=== PATIENT | male | born 1980 | race Caucasian/White ===

== ENCOUNTER 2019-09-27 20:35 | Emergency (ER) | payer SELFPAY ==
[2019-09-27] MEDS ORDERED: NORMAL SALINE 1000 ML 1,000 ML IV ONE (21:00)
--- NOTE | 2019-09-27 21:14 | ER Document Report ---
ED Medical Screen (RME) - General Chief Complaint: Abdominal Pain Stated Complaint: ABDOMINAL PAIN Time Seen by Provider: 09/27/19 20:55 - HPI Notes: 09/27/19 39-year-old male to the emergency department with complaints of left lower quadrant abdominal pain that began yesterday. He states that he has not had a bowel movement in 4 to 5 days. He states that he is been using methamphetamines. He is been injecting it smoking it and putting it up his rectum. He does admit to nausea and vomiting. He denies any other complaints. I Performed a brief medical screening exam on patient and determined he will need further care from Main side provider. I placed initial orders to expedite in his care. - Related Data Allergies/Adverse Reactions: No Known Allergies Allergy (Unverified 09/27/19 20:43) Past Medical History - Social History Chew tobacco use (# tins/day): No Frequency of alcohol use: Rare Drug Abuse: Methamphetamine Physical Exam - Vital signs Vitals: Temp Pulse Resp BP Pulse Ox 98.7 F 88 18 127/84 H 100 09/27/19 20:42 09/27/19 20:42 09/27/19 20:42 09/27/19 20:42 09/27/19 20:42 Course - Vital Signs Vital signs: Temp Pulse Resp BP Pulse Ox 98.7 F 88 18 127/84 H 100 09/27/19 20:42 09/27/19 20:42 09/27/19 20:42 09/27/19 20:42 09/27/19 20:42 - Laboratory Result Diagrams: 09/27/19 21:00 09/27/19 21:00 Laboratory results interpreted by me: 09/27/19 09/27/19 09/27/19 21:00 21:00 21:00 WBC 14.2 H Lymph % (Auto) 7.1 L [place] % (Auto) 13.8 H Absolute Neuts (auto) 11.1 H Absolute Monos (auto) 2.0 H Seg Neutrophils % 78.1 H Creatinine 1.40 H Est GFR (MDRD) Non-Af 56 L AST 72 H Urine Blood MODERATE H Urine Urobilinogen 4.0 H Ur Leukocyte Esterase LARGE H
[2019-09-27 21:20] LABS: ABSOLUTE BASOPHILS # (AUTO) 0.1 10^3/uL (0.0-0.2); ABSOLUTE EOSINOPHILS # (AUTO) 0.1 10^3/uL (0.0-0.6); ABSOLUTE NEUT (AUTO) 11.1 10^3/uL (1.7-8.2); BASOPHILS % (AUTO) 0.5 % (0-2); EOSINOPHILS % (AUTO) 0.5 % (0-6); HEMATOCRIT 43.5 % (37.9-51.0); HEMOGLOBIN 14.8 g/dL (13.5-17.0); LYMPHOCYTES % (AUTO) 7.1 % (13-45); MEAN CORPUSCULAR VOLUME 88 fl (80-97); MONOCYTES % (AUTO) 13.8 % (3-13); PLATELET COUNT 228 10^3/uL (150-450); RED BLOOD COUNT 4.93 10^6/uL (4.35-5.55); RED CELL DISTRIBUTION WIDTH 13.9 % (11.5-14.0); SEGMENTED NEUTROPHILS % (AUTO) 78.1 % (42-78); TOTAL CELLS COUNTED % (AUTO) 100 %; WHITE BLOOD COUNT 14.2 10^3/uL (4.0-10.5)
[2019-09-27 21:32] LABS: APPEARANCE,URINE SLIGHTLY-CLOUDY; BILIRUBIN,URINE NEGATIVE (NEGATIVE); COLOR,URINE YELLOW; GLUCOSE, URINE NEGATIVE (NEGATIVE); KETONES,URINE NEGATIVE (NEGATIVE); LEUKOCYTE ESTERASE,URINE LARGE (NEGATIVE); NITRITE,URINE NEGATIVE (NEGATIVE); PROTEIN,URINE NEGATIVE (NEGATIVE)
[2019-09-27] MEDS ORDERED: DIPHENHYDRAMINE HCL 50 MG/ML VIAL IV ONE (21:37)
[2019-09-27] MEDS ORDERED: ONDANSETRON HCL INJ/PF 4 MG/2 ML SDV IV ONE (21:37)
[2019-09-27] MEDS ORDERED: KETOROLAC TROMETHAMINE INJ/PF 30 MG/1 ML SDV IV ONE (21:37)
[2019-09-27 21:39] LABS: ALBUMIN 4.3 g/dL (3.5-5.0); ALKALINE PHOSPHATASE 83 U/L (38-126); ANION GAP 10 (5-19); ASPARTATE AMINO TRANSFERASE 72 U/L (17-59); BILIRUBIN,DIRECT 0.3 mg/dL (0.0-0.4); BILIRUBIN,TOTAL 1.3 mg/dL (0.2-1.3); BLOOD UREA NITROGEN 13 mg/dL (7-20); CALCIUM 9.7 mg/dL (8.4-10.2); CARBON DIOXIDE 26 mmol/L (22-30); CHLORIDE 101 mmol/L (98-107); GLUCOSE 106 mg/dL (75-110); POTASSIUM 3.8 mmol/L (3.6-5.0)
--- NOTE | 2019-09-27 21:40 | ER Document Report ---
ED GI/ - General Chief Complaint: Abdominal Pain Stated Complaint: ABDOMINAL PAIN Time Seen by Provider: 09/27/19 20:55 Notes: Patient is a 39-year-old male that comes emergency department for chief complaint of sharp abdominal pain and nausea since last night. Pain does radiate some to the flank on the left. Pain is worse on the left side in the mid to lower aspect but also occasionally is on the right and upper aspect. He denies vomiting. He states he thinks he has been having fevers but is not sure. He denies abdominal surgeries, he does have a history of kidney stones but states this feels different. He admits to methamphetamine use including injection and placing it up his rectum. He denies rectal pain but he does report no bowel movement for the past few days. - Related Data Allergies/Adverse Reactions: No Known Allergies Allergy (Unverified 09/27/19 20:43) Past Medical History - General Information source: Patient - Social History Smoking Status: Current Every Day Smoker Chew tobacco use (# tins/day): No Frequency of alcohol use: Rare Drug Abuse: Methamphetamine Lives with: Spouse/Significant other Family History: Reviewed & Not Pertinent Patient has suicidal ideation: No Patient has homicidal ideation: No Surgical Hx: Negative - Immunizations Hx Diphtheria, Pertussis, Tetanus Vaccination: Yes Review of Systems - Review of Systems Constitutional: See HPI EENT: No symptoms reported Cardiovascular: No symptoms reported Respiratory: No symptoms reported Gastrointestinal: See HPI Genitourinary: No symptoms reported Male Genitourinary: No symptoms reported Musculoskeletal: No symptoms reported Skin: No symptoms reported Hematologic/Lymphatic: No symptoms reported Neurological/Psychological: No symptoms reported Physical Exam - Vital signs Vitals: Temp Pulse Resp BP Pulse Ox 98.7 F 88 18 127/84 H 100 09/27/19 20:42 09/27/19 20:42 09/27/19 20:42 09/27/19 20:42 09/27/19 20:42 - Notes Notes: GENERAL: Patient is alert, slightly restless, slightly ill-appearing but not toxic in appearance HEAD: Normocephalic, atraumatic. EYES: Pupils equal, round, and reactive to light. Extraocular movements intact. ENT: Oral mucosa moist, tongue midline. Oropharynx unremarkable. Airway patent. NECK: Full range of motion. Supple. Trachea midline. LUNGS: Clear to auscultation bilaterally, no wheezes, rales, or rhonchi. No respiratory distress. HEART: Regular rate and rhythm. No murmur ABDOMEN: Patient winces with palpation mainly over the left side of the abdomen generally, mild generalized tenderness otherwise, no overt guarding, rigidity, or rebound tenderness. GENITOURINARY: Deferred EXTREMITIES: Moves all 4 extremities spontaneously. No edema, normal radial and dorsalis pedis pulses bilaterally. No cyanosis. BACK: no cervical, thoracic, lumbar midline tenderness. No saddle anesthesia, normal distal neurovascular exam. Moves all extremities in full range of motion. NEUROLOGICAL: Alert and oriented x3. Normal speech. Cranial nerves II through XII grossly intact. PSYCH: Normal affect, normal mood. SKIN: Warm, dry, normal turgor. No rashes or lesions noted. Course - Re-evaluation Re-evalutation: Patient symptoms significantly improved with Zofran, Toradol, diphenhydramine. He was given IV fluids. He does have generalized abdominal pain but this is much worse on the left side. He is somewhat ill-appearing but he does not have a fever. CBC shows leukocytosis at 14,000 with elevation of neutrophils but no bandemia. Chemistry unremarkable. Urinalysis indicating infection with large amount of white blood cells and leukocyte esterase, clean sample with less than 1 squamous epithelials. Culture placed. Patient has been started on Rocephin. Patient also has had blood cultures obtained. CAT scan had already been initiated by triage (CT of the abdomen pelvis with IV contrast). CT showing left-sided 7 mm obstructing stone in the proximal ureter with hydronephrosis on the left side. No other concerning findings. Because of patient's UTI and obstructing stone I discussed with patient, discussed with Dr. 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 Patient requests transfer to [facility] Vital signs are still unremarkable with no fever, tachycardia, or hypotension. On reevaluation patient states he feels much better and he declines any additional management at this time. 09/28/19 00:05 Called and spoke with [facility] transfer center, pending callback 09/28/19 00:[address] Houser, internal medicine, patient accepted for transfer. 09/28/19 01:27 Patient now has a fever of 102 F. He is getting the second gram of Rocephin, treat the fever, I did call [facility] back and update them on the change in status. 09/28/19 03:27 Still pending bed assignment, patient is resting comfortably, lead pressure is 111/61, heart rate is 65, pulse ox 97%, normal respirations. 09/28/19 04:08 I have spoken with [facility] again, they still not have bed and will not be abl e to tell me when this opens up. I discussed with patient and he states he is open to going to [facility]. I discussed with Dr. Gramajo, urology on-call, he states patient definitely needs a stent and he accepts patient for transfer to the emergency department from this emergency department so he can taken to the operating room. Patient is very agreeable with this plan. Patient has been kept n.p.o. here. 09/28/19 05:15 EMS at bedside, no change in vital signs, patient is being transferred to [facility] emergency department. Re-evaluated at bedside. Patient with no current complaints. No significant change, patient well appearing. Stable for transport. - Vital Signs Vital signs: Temp Pulse Resp BP Pulse Ox 100.0 F 87 18 111/61 96 09/28/19 02:40 09/28/19 00:55 09/28/19 03:01 09/28/19 03:01 09/28/19 03:01 - Laboratory Result Diagrams: 09/27/19 21:00 09/27/19 21:00 Laboratory results interpreted by me: 09/27/19 09/27/19 09/27/19 21:00 21:00 21:00 WBC 14.2 H Lymph % (Auto) 7.1 L [place] % (Auto) 13.8 H Absolute Neuts (auto) 11.1 H Absolute Monos (auto) 2.0 H Seg Neutrophils % 78.1 H Creatinine 1.40 H Est GFR (MDRD) Non-Af 56 L AST 72 H Urine Blood MODERATE H Urine Urobilinogen 4.0 H Ur Leukocyte Esterase LARGE H Discharge - Discharge Clinical Impression: Ureterolithiasis Abdominal pain Qualifiers: Abdominal location: generalized Qualified Code(s): R10.84 - Generalized abdominal pain Urinary tract infection Qualifiers: Urinary tract infection type: site unspecified Hematuria presence: without hematuria Qualified Code(s): N39.0 - Urinary tract infection, site not specified Condition: Stable Disposition: [facility]
[2019-09-27] MEDS ORDERED: CEFTRIAXONE 1 GM/D5W RTU 1 GM/50 ML RTUPB IV ONE (23:51)
--- NOTE | 2019-09-27 23:51 | RADIOLOGY REPORT (SQ) ---
EXAM DESCRIPTION: CT ABDOMEN PELVIS WITH IV CONTRAST COMPLETED DATE/TME: 09/27/2019 20:59 CLINICAL HISTORY: 39 years Male LLQ abd pain. COMPARISON: None. TECHNIQUE: Contiguous axial images obtained through the abdomen and pelvis following IV contrast. Reformatted images obtained. This exam was performed according to our department optimization program which includes automated exposure control, adjustment of the mA and/or kv according to patient size and/or use of iterative reconstruction technique. FINDINGS: The liver appears unremarkable. The spleen and pancreas appear unremarkable. No adrenal masses. Unremarkable right kidney. Delayed nephrogram on the left with perinephric stranding and edema and left hydronephrosis. There is an obstructing 7 mm proximal ureteral stone. There is a small amount of fluid in the pelvis and in the upper abdomen. The gallbladder is visualized. No aneurysmal dilatation of the aorta. No bowel obstruction. The appendix is unremarkable. IMPRESSION: Left hydronephrosis with delayed nephrogram and perinephric edema and an obstructing 7 mm proximal stone Small amount of free fluid in the abdomen and pelvis Unremarkable appendix
[2019-09-28] MEDS ORDERED: RINGERS SOLUTION,LACTATED 1,000 ML IV PRN ×2 (00:02→03:45)
[2019-09-28] MEDS ORDERED: ACETAMINOPHEN 325 MG TABLET PO ONE (01:22)
[2019-09-28] MEDS ORDERED: CEFTRIAXONE 1 GM/D5W RTU 1 GM/50 ML RTUPB IV ONE (01:23)
[2019-09-28] MEDS ORDERED: MORPHINE SULFATE 10 MG/ML INJ IV ONE (01:52)
[2019-09-28 03:21] VITALS: BP 111/61
[2019-09-28] MEDS ORDERED: NORMAL SALINE 1000 ML 1,000 ML IV PRN (03:33)
[2019-09-28] MEDS ORDERED: NORMAL SALINE 1000 ML 1,000 ML IV ONE (04:12)
== END 2019-09-28 04:50 | disposition short-term general hospital (02) ==
LOC: ER 20:35
DX: N20.1 Calculus of ureter (principal); R10.84 Generalized abdominal pain; N39.0 Urinary tract infection, site not specified; R11.0 Nausea; F17.200 Nicotine dependence, unspecified, uncomplicated; Z87.442 Personal history of urinary calculi
CPT/HCPCS: 36415; 87040; 87086; 83690; 83735; 85025; 80053; 81001; 74177; J1200; J1885; J2270; J2405; J7030; J7120; J0696

== ENCOUNTER 2019-10-27 19:11 | Emergency (ER) | payer SELFPAY ==
[2019-10-27 19:16] VITALS: BP 136/83
--- NOTE | 2019-10-27 19:46 | ER Document Report ---
HPI - HPI Time Seen by Provider: 10/27/19 19:32 Notes: Patient is a 39-year-old male with no significant past medical history, but was seen last month for a ureteral stone and had to be transferred as it was infected and had the stone removed on October 20 with a stent placed. Patient states that he was on Keflex upon discharge from the hospital, but they told him that there is still some bacteria in his urine with his urinalysis last week so I placed him on Bactrim which he started yesterday. Patient states that he missed his urology appointment and does not have a ride to go down to [place] so he came here to see if we could pull the ureteral stent out as he was told he could do it on his own per the urologist. Patient otherwise states that he does have some burning when he urinates which is not uncommon for him at this time and has noticed some blood which has been there since the stent was placed. He is otherwise eating and drinking without difficulty. He is having normal bowel movements. No other concerns or complaints. Denies any headache, fever, neck pain, URI, sore throat, chest pain, palpitations, syncope, cough, shortness of breath, wheeze, dyspnea, abdominal pain, nausea/vomiting/diarrhea, urinary retention, dysuria, hematuria, back pain, or rash. - ROS Systems Reviewed and Negative: Yes All other systems reviewed and negative Past Medical History - Social History Smoking Status: Unknown if Ever Smoked Family History: Reviewed & Not Pertinent - Immunizations Hx Diphtheria, Pertussis, Tetanus Vaccination: Yes Vertical Provider Document - CONSTITUTIONAL Agree With Documented VS: Yes Notes: PHYSICAL EXAMINATION: GENERAL: Well-appearing, well-nourished and in no acute distress. HEAD: Atraumatic, normocephalic. EYES: Pupils equal round and reactive to light, extraocular movements intact, sclera anicteric, conjunctiva are normal. ENT: Nares patent and without discharge. oropharynx clear without exudates. No tonsilar hypertrophy or erythema. Moist mucous membranes. NECK: Normal range of motion, supple without lymphadenopathy LUNGS: Breath sounds clear to auscultation bilaterally and equal. No wheezes rales or rhonchi. HEART: Regular rate and rhythm without murmurs, rubs, gallops. ABDOMEN: Soft, nontender, nondistended abdomen. No guarding, no rebound. Normal bowel sounds present. No CVA tenderness bilaterally. Musculoskeletal: FROM to passive/active. Strength 5+/5. Extremities: No cyanosis, clubbing, or edema b/l. Peripheral pulses 2+. Capillary refill less than 3 seconds. NEUROLOGICAL: Normal speech, normal gait. PSYCH: Normal mood, normal affect. SKIN: Warm, Dry, normal turgor, no rashes or lesions noted. Course - Re-evaluation Re-evalutation: 10/27/19 Patient is an afebrile, well-hydrated, 39-year-old male who presents with dysuria and probable urinary infection. Vitals are except without significant tachycardia, tachypnea, hypoxia. PE is otherwise unremarkable. Patient's abdomen is soft nontender throughout. He is nontoxic appearing and is tolerating p.o. without difficulty. See urinalysis. Urine cultures pending. Patient did start taking Bactrim yesterday. No further work-up warranted at this time. Patient states that his primary reason for coming was to see if he can get the ureteral stent pulled out which I discussed with Dr. Moeller and we will not do that in the emergency setting. I will provide him with local information for urology due to transportation issues to go to [place]. Low suspicion/risk for acute appendicitis, bowel obstruction, acute cholecystitis, perforated diverticulitis, incarcerated hernia, pancreatitis, perforated ulcer, peritonitis, sepsis, testicular torsion, or other systemic emergent condition at this time. Patient is aware that his condition can change from initial presentation and he needs to monitor symptoms closely and seek medical attention if any acute changes. Conservative measures otherwise for symptoms. Recheck with PCM in 2-3 days. Schedule consult with urology. Return to the ED with any worsening/concerning symptoms otherwise as reviewed in discharge. Patient is in agreement. - Vital Signs Vital signs: Temp Pulse Resp BP Pulse Ox 98.5 F 89 16 136/83 H 99 10/27/19 19:15 10/27/19 19:15 10/27/19 19:15 10/27/19 19:15 10/27/19 19:15 Discharge - Discharge Clinical Impression: Dysuria Condition: Stable Disposition: HOME, SELF-CARE Additional Instructions: Push fluids (i.e. water, cranberry juice) Proper hygenic technique Keep the skin clean Tylenol/ibuprofen as needed Take medications as directed F/u with your PCM in 3-5 days for a recheck Schedule consult with urology Return to the ED with any worsening symptoms and/or development of fever, headache, chest pain, palpitations, syncope, shortness of breath, trouble breathing, abdominal pain, n/v/d, blood in stool/urine, loss of control of bowel/bladder, urinary retention, or other worsening symptoms that are concern ing to you. Forms: Elevated Blood Pressure Referrals: [facility] [Provider Group] - Follow up in 3-5 days
[2019-10-27 20:18] LABS: APPEARANCE,URINE CLOUDY; BILIRUBIN,URINE NEGATIVE (NEGATIVE); COLOR,URINE YELLOW; GLUCOSE, URINE NEGATIVE (NEGATIVE); KETONES,URINE NEGATIVE (NEGATIVE); LEUKOCYTE ESTERASE,URINE MODERATE (NEGATIVE); NITRITE,URINE NEGATIVE (NEGATIVE); PROTEIN,URINE 100 mg/dL (NEGATIVE)
== END 2019-10-27 20:38 | disposition home or self-care (01) ==
LOC: ER 19:11
DX: R30.0 Dysuria (principal); Z87.442 Personal history of urinary calculi; Z96.0 Presence of urogenital implants
CPT/HCPCS: 81001; 87086; 87088; 99283

== ENCOUNTER 2020-04-18 03:10 | Emergency (ER) | payer MEDICAID ==
[2020-04-18 04:10] LABS: HEMATOCRIT 46.7 % (37.9-51.0); HEMOGLOBIN 16.2 g/dL (13.5-17.0); MEAN CORPUSCULAR HEMOGLOBIN 30.7 pg (27.0-33.4); MEAN CORPUSCULAR HGB CONC 34.6 g/dL (32.0-36.0); MEAN CORPUSCULAR VOLUME 89 fl (80-97); PLATELET COUNT 199 10^3/uL (150-450); RED BLOOD COUNT 5.27 10^6/uL (4.35-5.55)
[2020-04-18 04:18] LABS: ALBUMIN 4.4 g/dL (3.5-5.0); ALKALINE PHOSPHATASE 72 U/L (38-126); ANION GAP 8 (5-19); ASPARTATE AMINO TRANSFERASE 52 U/L (17-59); BILIRUBIN,TOTAL 0.6 mg/dL (0.2-1.3); BLOOD UREA NITROGEN 15 mg/dL (7-20); CALCIUM 9.7 mg/dL (8.4-10.2); CARBON DIOXIDE 28 mmol/L (22-30); CHLORIDE 98 mmol/L (98-107); GLUCOSE 99 mg/dL (75-110); POTASSIUM 4.2 mmol/L (3.6-5.0); TOTAL PROTEIN 6.8 g/dL (6.3-8.2)
[2020-04-18 04:19] LABS: APPEARANCE,URINE CLEAR; BILIRUBIN,URINE NEGATIVE (NEGATIVE); COLOR,URINE YELLOW; GLUCOSE, URINE NEGATIVE (NEGATIVE); KETONES,URINE NEGATIVE (NEGATIVE); LEUKOCYTE ESTERASE,URINE NEGATIVE (NEGATIVE); NITRITE,URINE NEGATIVE (NEGATIVE); PROTEIN,URINE NEGATIVE (NEGATIVE); URINE SPECIFIC GRAVITY 1.024
[2020-04-18 04:40] LABS: ABSOLUTE LYMPHOCYTES# (MANUAL) 0.4 10^3/uL (0.5-4.7); ABSOLUTE MONOCYTES # (MANUAL) 0.3 10^3/uL (0.1-1.4); BAND NEUTROPHILS % (MANUAL) 2 % (3-5); BASOPHILS % (MANUAL) 0 % (0-2); EOSINOPHILS % (MANUAL) 0 % (0-6); LYMPHOCYTES % (MANUAL) 4 % (13-45); MONOCYTES % (MANUAL) 3 % (3-13); SEGMENTED NEUTROPHILS % (MAN) 91 % (42-78); TOTAL CELLS COUNTED 100
[2020-04-18 04:41] LABS: ANISOCYTOSIS SLIGHT; PLATELET COMMENT ADEQUATE
--- NOTE | 2020-04-18 05:16 | RADIOLOGY REPORT (SQ) ---
EXAM DESCRIPTION: CT ABDOMEN PELVIS WITHOUT IV CONTRAST COMPLETED DATE/TME: 04/18/2020 03:50 CLINICAL HISTORY: 39 years, Male, bilateral flank pain fever COMPARISON: 09/27/2019 TECHNIQUE: Axial CT images of the abdomen and pelvis without contrast. Sagittal and coronal reformats were performed. DLP 271 Images stored on PACS. All CT scanners at this facility use dose modulation, iterative reconstruction, and/or weight based dosing when appropriate to reduce radiation dose to as low as reasonably achievable (ALARA). [facility]: Dose Right [facility]: CareDose [facility]: Dose Right [facility]: Teradose 4D [facility]: Smart Technologies LIMITATIONS: None. FINDINGS: Lung bases are clear. The liver, gallbladder, spleen, pancreas, and adrenal glands are unremarkable. There is no evidence of hydronephrosis or urolithiasis bilaterally. There is a 3 mm parenchymal calcification along the lower pole the left kidney. There is no intraperitoneal free air or fluid. No pathologically enlarged lymph nodes are detected. The abdominal aorta is normal in caliber. The stomach and small bowel are unremarkable. The appendix is not uniquely identified, however there are no definite pericecal inflammatory changes. The colon contains a moderate amount of stool. The urinary bladder and prostate gland appear unremarkable. There are no lytic or blastic bone lesions. IMPRESSION: No acute findings. No evidence of urolithiasis or hydronephrosis bilaterally. The appendix is not uniquely identified, however there are no definite pericecal inflammatory changes. TECHNICAL DOCUMENTATION: Quality ID # [id number]: Final reports with documentation of one or more dose reduction techniques (e.g., Automated exposure control, adjustment of the mA and/or kV according to patient size, use of iterative reconstruction technique) copyright 2011 [employer]- All Rights Reserved
[2020-04-18] MEDS ORDERED: CEFTRIAXONE 1 GM/D5W RTU 1 GM/50 ML RTUPB IV ONE (05:57)
[2020-04-18] MEDS ORDERED: NORMAL SALINE 1000 ML 1,000 ML IV ONE (05:58)
[2020-04-18] MEDS ORDERED: KETOROLAC TROMETHAMINE INJ/PF 30 MG/1 ML SDV IV ONE (05:58)
--- NOTE | 2020-04-18 06:34 | ER Document Report ---
ED General - General Chief Complaint: Flank Pain Stated Complaint: FEVER TRAVEL OUTSIDE OF THE [place] IN LAST 30 DAYS: No - HPI Notes: 39-year-old male history of IV methamphetamine use, smoking presents with 2 to 3 days gradual onset gradually worsening dysuria, frequency, urgency, and suprapubic discomfort associated with bilateral flank pain, subjective fever, and nausea. Patient says that he had similar symptoms when he had a previous UTI but that that was related to a kidney stone at that time which required surgical intervention. Patient denies any recent infections in the past few months or antibiotics, vomiting, bowel symptoms, midline back pain - Related Data Allergies/Adverse Reactions: No Known Allergies Allergy (Unverified 09/27/19 20:43) Past Medical History - General Information source: Patient - Social History Smoking Status: Current Every Day Smoker Drug Abuse: Methamphetamine Family History: Reviewed & Not Pertinent Patient has homicidal ideation: No Renal/ Medical History: Reports: Hx Kidney Stones - Immunizations Hx Diphtheria, Pertussis, Tetanus Vaccination: Yes Review of Systems - Review of Systems Notes: REVIEW OF SYSTEMS: CONSTITUTIONAL : +fever, +chills EENT: Denies recent cold/sinus symptoms, denies throat pain CARDIOVASCULAR: Denies chest pain, GAVIN RESPIRATORY: Denies cough, denies shortness of breath. GASTROINTESTINAL: Denies abdominal pain, +nausea -vomiting. GENITOURINARY: + difficulty urinating, +painful urination. MUSCULOSKELETAL: Denies neck pain, midline back pain. SKIN: Denies rash or skin lesions. HEMATOLOGIC : Denies easy bruising or bleeding. LYMPHATIC: Denies swollen, enlarged glands. NEUROLOGICAL: Denies headache, denies change in gait. PSYCHIATRIC: Denies anxiety or stress or depression. Physical Exam - Vital signs Vitals: Temp Pulse Resp BP Pulse Ox 100.3 F 96 18 116/65 96 04/18/20 03:18 04/18/20 03:18 04/18/20 03:18 04/18/20 03:18 04/18/20 03:18 - Notes Notes: PHYSICAL EXAMINATION: GENERAL: Well-appearing, well-nourished and in no acute distress. HEAD: Atraumatic, normocephalic. EYES: Pupils equal round and appropriate constriction, sclera anicteric, conjunctiva are normal. ENT: nares patent, moist mucous membranes. NECK: Normal range of motion, supple without lymphadenopathy LUNGS: Breath sounds clear to auscultation bilaterally and equal. No wheezes rales or rhonchi. HEART: Regular rate and rhythm without murmurs ABDOMEN: Soft, nontender, no guarding, no masses, +CVAT b/l EXTREMITIES: Normal range of motion, no pitting or edema. No cyanosis. No midline spinal tenderness. NEUROLOGICAL: Awake, alert, conversing appropriately, moves all extremities spontaneously. PSYCH: Normal mood, normal affect. SKIN: Warm, Dry, normal turgor, no rashes or lesions noted. Course - Re-evaluation Re-evalutation: 04/18/20 06:24 Presentation consistent with nephritis. Although patient is IV drug user there is no midline back pain and his flank pain is associated with urine symptoms and he is a reliable historian and pyelonephritis adequately explains his symptoms. Patient ready for discharge on antibiotics, thank you no stone on CT and low suspicion for radiolucent urethral stone given no urinary retention and no penile pain. Warned patient about the possibility of a stone that cannot be detected on CT and gave extensive return precautions which he demonstrated understanding of. Discussed with patient that urine was equivocal for infection and reassessed his symptoms and agree that symptoms are secondary to urine source but reinforced with patient that it was very important to assess his symptoms continuously and to return to ED immediately if he should develop new or changing symptoms or not be improving on antibiotics. Patient ready for discharge with primary care follow-up. - Vital Signs Vital signs: Temp Pulse Resp BP Pulse Ox 98.3 F 81 18 105/68 96 04/18/20 05:58 04/18/20 05:58 04/18/20 03:18 04/18/20 05:58 04/18/20 05:58 - Laboratory Result Diagrams: 04/18/20 03:40 04/18/20 03:40 Laboratory results interpreted by me: 04/18/20 04/18/20 04/18/20 03:40 03:40 03:40 Seg Neuts % (Manual) 91 H Band Neutrophils % 2 L Lymphocytes % (Manual) 4 L Abs Neuts (Manual) 9.3 H Abs Lymphs (Manual) 0.4 L Sodium 134.4 L Urine Blood MODERATE H Urine Urobilinogen 4.0 H Discharge - Discharge Clinical Impression: Pyelonephritis Condition: Stable Disposition: HOME, SELF-CARE Additional Instructions: Pyelonephritis Your evaluation shows evidence of pyelonephritis. This is an infection in the kidney. Typical symptoms are fever, pain in the flank, pain on urination, and frequent urination. Many cases of pyelonephritis can be treated at home. Hospital care may be necessary for patients who are very ill, or elderly or . Pyelonephritis is treated with antibiotics. Be sure to take all the medication as prescribed. Drink plenty of liquids (about three quarts per day). You may take acetaminophen for fever. You should feel significantly improved within two days. Return for a re-examination if your symptoms worsen in any way -- such as high fever, shaking chills, severe weakness or dizziness, severe pain, or inability to pass your urine. If you should develop pain in the middle of your back where your bones are, inability to pass urine, belly pain, confusion, dizziness, fainting, or any other worsening or alarming symptoms return to the ED immediately. Prescriptions: Ciprofloxacin HCl [Cipro] 500 mg PO BID #14 tablet Referrals: [facility] [Provider Group] - Follow up as needed [facility] [Provider Group] - Follow up as needed
[2020-04-18 07:22] VITALS: BP 112/55
== END 2020-04-18 08:04 | disposition home or self-care (01) ==
LOC: ER 03:10
DX: N12 Tubulo-interstitial nephritis, not specified as acute or chronic (principal); R11.0 Nausea; F15.10 Other stimulant abuse, uncomplicated; F17.200 Nicotine dependence, unspecified, uncomplicated; Z87.442 Personal history of urinary calculi
CPT/HCPCS: 99284; 96375; 96365; 36415; 87086; 83605; 83690; 85025; 80053; 81001; 74176; J1885; J7030; J0696